=== PATIENT | male | born 1955 | race Caucasian/White ===

== ENCOUNTER 2016-11-16 23:14 | Emergency (ER) | payer BC ==
--- NOTE | 2016-11-16 23:29 | EDM.PDOC ---
ED HPI GENERAL MEDICAL PROBLEM - General Chief Complaint: ENT Problem Stated Complaint: THROAT/PAIN HEADACHES Time Seen by Provider: 11/16/16 23:28 Source of Information: Reports: Patient - History of Present Illness INITIAL COMMENTS - FREE TEXT/NARRATIVE: HISTORY AND PHYSICAL: History of present illness: []Patient presents with 2 hours of pain in the TMJ area, he is tender with opening and closing of his mouth with pressure applied, his teeth are ground down from grinding his teeth at night. He states that symptomatically he was doing well at 5 PM, he notes that he entered his pickup truck which he recently put some type of vanilla extract in the air conditioning ducts, shortly after being in the truck and running air- conditioning he notes nasal swelling on the left and not the right/nasal occlusion. At approximately 9 PM he developed the 7 out of 10 pain in bilateral TMJ distribution along with 2 enlarged tender lymph nodes which are some submandibular one on the right and one on the left. He has no drooling voice change no difficulty speaking hence no hot potato voice no trismus He did take Tylenol with some benefit He also notes that he had a dentist appointment on Thursday with no findings of cavities or decay No fever nausea vomiting chills sweats no chest pain shortness breath dizziness or palpitation no bowel or urine symptoms Review of systems: As per history of present illness and below otherwise all systems reviewed and negative. Past medical history: As per history of present illness and as reviewed below otherwise noncontributory. Surgical history: As per history of present illness and as reviewed below otherwise noncontributory. Social history: No reported history of drug or alcohol abuse. Family history: As per history of present illness and as reviewed below otherwise noncontributory. Physical exam: HEENT: Atraumatic, normocephalic, pupils reactive, negative for conjunctival pallor or scleral icterus, mucous membranes moist, throat clear, neck supple, nontender, trachea midline. Left nares occluded with boggy mucosa and swelling it appears there may even be a polyp however due to swollen/boggy mucosa is difficult to discern. the right is patent with no nasal discharge sinuses are nontender supraorbital or maxillary; tympanic membranes are clear he does have bilateral effusion, oropharynx mild erythema no exudates Lungs: Clear to auscultation, breath sounds equal bilaterally, chest nontender. Heart: S1S2, regular, negative for clicks, rubs, or JVD. Abdomen: Soft, nondistended, nontender. Negative for masses or hepatosplenomegaly. Negative for costovertebral tenderness. Pelvis: Stable nontender. Genitourinary: Deferred. Rectal: Deferred. Extremities: Atraumatic, negative for cords or calf pain. Neurovascular unremarkable. Neuro: Awake, alert, oriented. Cranial nerves II through XII unremarkable. Cerebellum unremarkable. Motor and sensory unremarkable throughout. Exam nonfocal. Diagnostics: []CBC, CRP, rapid strep Therapeutics: []Multiple [id number] symptomatic therapies I did plan to provide Toradol via [facility] and return if symptoms persist or worsen we did discuss with 2-3 hours of symptomology almost anything can develop over the next 24-48 hours and as far as changing and symptoms Impression: []Swelling/occlusion left nare Potential for environmental allergy TMJ Definitive disposition and diagnosis as appropriate pending reevaluation and review of above. jaw Pain Score (Numeric/FACES): 7 - Related Data Allergies Allergy/AdvReac Type Severity Reaction Status Date / Time Sulfa (Sulfonamide Allergy Cannot Verified 11/16/16 23:21 Antibiotics) Remember duracef Allergy Swelling Uncoded 11/16/16 23:21 Home Meds: Home Meds Aspirin [Morrison Aspirin] 81 mg PO DAILY 01/09/16 [History] Canagliflozin [Invokana] 300 mg PO DAILY 01/09/16 [History] Enalapril Maleate 15 mg PO BID 01/09/16 [History] Glimepiride [Amaryl] 2 mg PO DAILY 01/09/16 [History] atorvaSTATin Calcium [Atorvastatin Calcium] 10 mg PO DAILY 01/09/16 [History] metFORMIN HCl [Metformin HCl] 500 mg PO BID 01/09/16 [History] Past Medical History HEENT History: Reports: None Cardiovascular History: Reports: Blood Clots/VTE/DVT, High Cholesterol, Hypertension Other Cardiovascular History: hx blood clots to left leg Respiratory History: Reports: None Gastrointestinal History: Reports: Colon Polyp Genitourinary History: Reports: None Musculoskeletal History: Reports: Fracture Neurological History: Reports: None Psychiatric History: Reports: None Endocrine/Metabolic History: Reports: Diabetes, Type II, Obesity/BMI 30+ Hematologic History: Reports: None Immunologic History: Reports: None Oncologic (Cancer) History: Reports: None Dermatologic History: Reports: None - Past Surgical History Head Surgeries/Procedures: Reports: None GI Surgical History: Reports: Colonoscopy Endocrine Surgical History: Reports: None Other Musculoskeletal Surgeries/Procedures:: surgery on left leg x5 Social & Family History - Tobacco Use Smoking Status *Q: Never Smoker - Recreational Drug Use Recreational Drug Use: No Drug Use in Last 12 Months: No ED ROS GENERAL - Review of Systems Review Of Systems: ROS reveals no pertinent complaints other than HPI. ED EXAM, GENERAL - Physical Exam Exam: See Below Course - Vital Signs Last Recorded V/S: Last Vital Signs Temp 36.5 C 11/16/16 23:16 Pulse 66 11/16/16 23:16 Resp 18 11/16/16 23:16 BP 153/81 H 11/16/16 23:16 Pulse Ox 95 11/16/16 23:16 - Orders/Labs/Meds Orders: Active Orders 24 hr Category Date Time Status CULTURE STREP A CONFIRMATION [RM] Stat Lab 11/16/16 23:35 Results STREP SCRN A RAPID W CULT CONF [RM] Stat Lab 11/16/16 23:35 Results Labs: Laboratory Tests 11/16/16 11/16/16 Range/Units 23:47 23:47 WBC 6.49 (4.0-11.0) K/uL RBC 5.05 (4.50-5.90) M/uL Hgb 15.0 (13.0-17.0) g/dL Hct 45.3 (38.0-50.0) % MCV 89.7 (80.0-98.0) fL MCH 29.7 (27.0-32.0) pg MCHC 33.1 (31.0-37.0) g/dL RDW Std Deviation 46.0 (28.0-62.0) fl RDW Coeff of Shireen 14 (11.0-15.0) % Plt Count 194 (150-400) K/uL MPV 9.00 (7.40-12.00) fL Neut % (Auto) 64.2 (48.0-80.0) % Lymph % (Auto) 23.0 (16.0-40.0) % Barnes % (Auto) 9.6 (0.0-15.0) % Eos % (Auto) 2.9 (0.0-7.0) % Baso % (Auto) 0.3 (0.0-1.5) % Neut # (Auto) 4.2 (1.4-5.7) K/uL Lymph # (Auto) 1.5 (0.6-2.4) K/uL Barnes # (Auto) 0.6 (0.0-0.8) K/uL Eos # (Auto) 0.2 (0.0-0.7) K/uL Baso # (Auto) 0.0 (0.0-0.1) K/uL Nucleated RBC % 0.0 /100WBC Nucleated RBCs # 0 K/uL C-Reactive Protein 0.49 (0.0-0.5) mg/dL Departure - Departure Time of Disposition: 00:42 Disposition: Home, Self-Care 01 Condition: Good Clinical Impression: TMJ (temporomandibular joint syndrome) - Discharge Information Forms: ED Department Discharge Additional Instructions: Medication as prescribed A nasal steroid is provided as well Return if symptoms persist or worsen or new concerning symptoms develop Follow-up with primary care as scheduled on the The following information is given to patients seen in the emergency department who are being discharged to home. This information is to outline your options for follow-up care. We provide all patients seen in our emergency department with a follow-up referral. The need for follow-up, as well as the timing and circumstances, are variable depending upon the specifics of your emergency department visit. If you don't have a primary care physician on staff, we will provide you with a referral. We always advise you to contact your personal physician following an emergency department visit to inform them of the circumstance of the visit and for follow-up with them and/or the need for any referrals to a consulting specialist. The emergency department will also refer you to a specialist when appropriate. This referral assures that you have the opportunity for follow-up care with a specialist. All of these measure are taken in an effort to provide you with optimal care, which includes your follow-up. Under all circumstances we always encourage you to contact your private physician who remains a resource for coordinating your care. When calling for follow-up care, please make the office aware that this follow-up is from your recent emergency room visit. If for any reason you are refused follow-up, please contact the [facility] emergency department at and asked to speak to the emergency department charge nurse. - My Orders Last 24 Hours: My Active Orders 11/16/16 23:35 CULTURE STREP A CONFIRMATION [RM] Stat STREP SCRN A RAPID W CULT CONF [RM] Stat - Assessment/Plan Last 24 Hours: My Active Orders 11/16/16 23:35 CULTURE STREP A CONFIRMATION [RM] Stat STREP SCRN A RAPID W CULT CONF [RM] Stat
[2016-11-17 01:33] VITALS: BP 147/77
== END 2016-11-17 00:55 | disposition home or self-care (01) ==
LOC: MW.ED 23:14
DX: M26.603 Bilateral temporomandibular joint disorder, unspecified (principal); E66.9 Obesity, unspecified; E78.00 Pure hypercholesterolemia, unspecified; I10 Essential (primary) hypertension; E11.9 Type 2 diabetes mellitus without complications; Z79.82 Long term (current) use of aspirin; Z79.84 Long term (current) use of oral hypoglycemic drugs; Z79.899 Other long term (current) drug therapy; Z88.2 Allergy status to sulfonamides
CPT/HCPCS: 36415; 85025; 86140; 87081; 87880; 99283

== ENCOUNTER 2020-06-02 22:38 | Observation (INO) | payer BC ==
[2020-06-02] MEDS ORDERED: Aspirin 81 MG Tab.Chew PO ONE (23:25)
[2020-06-02] MEDS ORDERED: Acetaminophen 500 MG Tab PO ONE (23:25)
[2020-06-02 23:44] LABS: BLOOD UREA NITROGEN,BUN 23 mg/dL (7.0-18.0); CARBON DIOXIDE,CO2 21.7 mmol/L (21.0-32.0); CHLORIDE,CL 103 mmol/L (98-107); GLUCOSE RANDOM 176 mg/dL (74-106); POTASSIUM,K 4.8 mmol/L (3.5-5.1); SODIUM,NA 139 mmol/L (136-148)
--- NOTE | 2020-06-03 01:39 | CR ---
INDICATION: Chest pain. Shortness of breath. COMPARISON: None. FINDINGS/IMPRESSION: Upright portable AP chest radiographs. [id number]-du-[id number] elevation of the left diaphragm. Blunting of the left costophrenic angle laterally, suggesting a trace left pleural effusion. Mild left basilar lung stranding consistent with a small amount of atelectasis or scarring. Lungs otherwise appear clear. Upper normal heart size. No acute osseous findings. Dictated by Az Tobar MD @ 06/03/2020 1:37:36 AM Dictated by: Az Tobar MD @ 06/03/2020 01:39:06 (Electronically Signed)
[2020-06-03] MEDS ORDERED: Iopamidol 755 MG/ML 500 ML Multipack Bottle IVPUSH STA (03:50)
--- NOTE | 2020-06-03 04:07 | CT ---
INDICATION: Profound hypoxia. Negative D-dimer. COMPARISON: Chest radiograph from today. TECHNIQUE: CT examination of the chest was performed with the uneventful intravenous administration of 100 cc of Isovue 370 while 1 and 1.5 mm thick axial sections were obtained through the pulmonary arteries. Please note that all CT scans at this facility use dose modulation, iterative reconstruction, and/or weight-based dosing when appropriate to reduce radiation dose to as low as reasonably achievable. FINDINGS: : There is no sign of pulmonary embolism, with normal enhancement and branching of the pulmonary arteries. There is mild thickening of the bronchial uriostegui throughout the entire chest, consistent with mild bronchitis. There is mild linear density in the posterior and lateral left lower lobe at the lung base, associated with mild pleural thickening. This is probably scarring from previous inflammatory disease. The rest of the chest is clear. There is no sign of any interstitial fibrosis. There is no sign of any pleural effusion. There is no sign of mediastinal or hilar mass or adenopathy. The heart is normal in appearance for the patient`s age, as are the aorta and other ascending great vessels. There is no sign of supraclavicular or axillary mass or adenopathy. The visualized superior liver, spleen, pancreas, kidneys, and adrenals are normal in appearance. There is mild scoliosis of the thoracic spine convex towards the right. The osseous structures are otherwise normal in appearance for the patient`s age. IMPRESSION: No sign of pulmonary embolism. Mild thickening of bronchial uriostegui throughout the chest consistent with mild bronchitis. Mild linear density in the posterior and lateral left lower lobe, along with mild pleural thickening, consistent with previous inflammatory disease. Please note that all CT scans at this facility use dose modulation, iterative reconstruction, and/or weight-based dosing when appropriate to reduce radiation dose to as low as reasonably achievable. Dictated by Chilango Kearney MD @ Jun 03 2020 4:01AM Signed by Dr. Chilango Kearney @ Jun 03 2020 4:05AM
[2020-06-03] MEDS ORDERED: Albuterol/Ipratropium 3.0-0.5 MG/3 ML Neb Soln NEB ONE ×2 (04:13→05:27)
[2020-06-03] MEDS ORDERED: predniSONE 20 MG Tab PO ONE (05:15)
[2020-06-03] MEDS ORDERED: Ondansetron 4 MG/2 ML SDV IVPUSH PRN (07:24)
[2020-06-03] MEDS ORDERED: Enoxaparin 40 MG/0.4 ML Syringe SUBCUT SCH (07:30)
--- NOTE | 2020-06-03 07:54 | EDM.PDOC ---
ED HPI GENERAL MEDICAL PROBLEM - General Chief Complaint: Headache Stated Complaint: SEVERE HEADACHE Time Seen by Provider: 06/02/20 23:28 - History of Present Illness INITIAL COMMENTS - FREE TEXT/NARRATIVE: CHIEF COMPLAINT(S): Headache HISTORY OF PRESENT ILLNESS: This is a 64-year-old man with a past medical history of diabetes mellitus who comes to the emergency department with a chief complaint of headache. The patient states that after eating breakfast this morning he started to experiencing a pounding headache which she describes as bifrontal rated 4-5 out of 10 which has slowly worsened throughout the day. He denies any associated blurry vision, loss of vision, numbness, tingling, weakness. He denies any trouble walking, speaking, swallowing. He states that he does not have a history of headaches and denies any aggravating factors or relieving factors. He denies any nausea or vomiting. He states that he has been more fatigued throughout the day and when he woke up at around 2 PM he started to experience some shortness of breath and tightness across his anterior chest and some aching in his lower back. He denies any syncope, recent travel, recent surgery, prior history of DVT or PE. He denies any history of CAD. He states that he did have Covid in December and it felt similar to this. He denies any history of COPD or asthma. He denies any chest pain. He denies any cough. REVIEW OF SYSTEMS: Constitutional: Denies fever, chills. Eyes: Denies eye pain Ears, Nose, Mouth, & Throat: Denies earache Cardiovascular: Positive for chest tightness denies chest pain Respiratory: Positive for shortness of breath Gastrointestinal: Denies Nausea, vomiting, diarrhea, hematochezia. Genitourinary: Denies hematuria Skin:Denies a rash MSK: Positive for back pain. Neurological: Positive for headache. Denies blurred vision, loss of vision, numbness, tingling, weakness Psychiatric: Denies depression PAST MEDICAL HISTORY: As per history of present illness and as reviewed below otherwise noncontributory. SURGICAL HISTORY: As per history of present illness and as reviewed below otherwise noncontributory. SOCIAL HISTORY: As per history of present illness and as reviewed below other lopez noncontributory. FAMILY HISTORY: As per history of present illness and as reviewed below otherwise noncontributory. EXAMINATION OF ORGAN SYSTEMS/BODY AREAS: Constitutional: Blood pressure was 148/85, respiratory rate 18 with an oxygen saturation of 92% on room air. Temperature 37. Heart rate was 85 General: Obese gentleman who does not appear to be in acute distress. Psychiatric: Appropriate mood and affect. Eyes: No scleral icterus or conjunctival erythema pupils are equal round and reactive to light. Extraocular movements intact. No vertical or horizontal nystagmus. ENMT: Moist mucous membranes. No pharyngeal erythema Cardiovascular: Regular, rate, and rhythm. No gallops, murmurs, or rubs. Bilateral upper extremity pulses symmetric and intact. No peripheral edema. No JVD. Respiratory: Patient is speaking in full sentences. There is bilateral rhonchorous breath sounds. No obvious wheezing. No crackles noted. Gastrointestinal: Soft, non-tender, non-distended. Normoactive bowel sounds Genitourinary: No suprapubic tenderness Musculoskeletal: Normal range of motion. Skin: No lesions or abrasions. Neurological: AOx4. CN grossly intact. Stregth 5/5 in bilateral upper and lower extremity. Sensation is intact bilaterally in upper and lower extremity. Gait appears normal. Finger to nose, heel to hua, rapid alternating movements intact. MEDICAL DECISION MAKING AND COURSE IN THE ED WITH INTERPRETATION/REVIEW OF DIAGNOSTIC STUDIES: This is a 64-year-old man with a past medical history of diabetes mellitus who presents to the emergency department with a bifrontal headache who is neurovascularly intact who is hypoxic but is speaking full sentences with rhonchorous breath sounds bilaterally. At this time we did place the patient on supplemental oxygenation. EKG was obtained which did not reveal any acute signs of ischemia. Will obtain a cardiac work-up including a D-dimer as the patient does have a history of pulmonary embolism after a extremity khalil rgery. Will obtain a BNP given the possibility of CHF. We will reevaluate the patient. I will provide the patient with Tylenol for his headache. Laboratory: CBC is unremarkable. Coags are within normal limits. D-dimer is normal. CMP reveals mildly elevated BUN at 23, hyperglycemia at 176, hyperbilirubinemia at 1.3 with normal AST and ALT. Troponin is negative. BNP is mildly elevated at 122 otherwise unremarkable. Covid is negative. The radiological images were viewed by myself along with reading the report from the radiologist. Chest x-ray reveals mild to moderate elevation of the left hemidiaphragm with blunting of the left costophrenic angle laterally suggesting a trace left pleural effusion. There is mild left basilar lung stranding consistent with a small amount of elective cysts or scarring. Otherwise no acute cardiopulmonary process. Time: 2304 Twelve-lead EKG interpreted by myself. Normal sinus rhythm at a rate of 87 beats per minute. Normal axis. CA interval is 196 ms. QRS duration is less than [address] segments are normal without elevations or depressions. No T wave inversions there is a Q wave in lead V2. Possible right ventricular hypertrophy. There are occasional PVCs. No prior EKGs in our system. Interpretation: Normal sinus rhythm with occasional PVCs and right ventricular hypertrophy After initial work-up the patient continued to remain hypoxic however his headache did improve. At this time I am not convinced that the patient has CHF as suggested by a mildly elevated BNP and a trace right pleural effusion. Given the patient's history of pulmonary embolism and the continued hypoxia we will obtain a CT angio to evaluate. The patient does not have any white count, is afebrile therefore it is unlikely due to pneumonia. The Covid is negative. The radiological images were viewed by myself along with reading the report from the radiologist. CT angiogram of the chest does not reveal any acute pulmonary embolism. There is mild thickening of the bronchial uriostegui consistent with bronchitis. There is a mild linear density in the posterior and lateral left lower lobe with mild pleural thickening which is consistent with prior inflammatory disease. After imaging although there was no wheezing on examination I did provide the patient with a DuoNeb treatment and prednisone. I did discuss the results with the patient at this time I do believe he is experiencing hypoxia secondary to bronchitis. 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 We will reevaluate after DuoNeb treatment. We did reevaluate after the DuoNeb treatment and the patient continued to remain hypoxic at the same level as prior to the treatment. Therefore we did increase the patient's oxygen level with resultant oxygen saturation of 94%. I did discuss with him at this time that given his low oxygen I would like to repeat the DuoNeb treatment but that I would like to admit him to the hospital for further evaluation and treatment. He was amenable to this plan. I contacted Dr. Palacio who accepted the patient for observation admission. DISPOSITION: The patient was admitted to the hospital in stable condition CONDITION: Fair PROCEDURES: None FINAL IMPRESSION(S)/DIAGNOSES: 1. Acute hypoxic respiratory failure likely secondary to bronchitis Cliff Fontenot M.D. chest Pain Score (Numeric/FACES): 4 - Related Data Allergies Allergy/AdvReac Type Severity Reaction Status Date / Time Sulfa (Sulfonamide Allergy Cannot Verified 06/02/20 22:57 Antibiotics) Remember duracef Allergy Swelling Uncoded 11/16/16 23:21 Home Meds: Home Meds Aspirin [Strayhorn Aspirin EC] 81 mg PO DAILY 01/09/16 [History] Canagliflozin [Invokana] 300 mg PO DAILY 01/09/16 [History] Enalapril Maleate 15 mg PO BID 01/09/16 [History] Glimepiride [Amaryl] 2 mg PO DAILY 01/09/16 [History] atorvaSTATin Calcium [Atorvastatin Calcium] 10 mg PO DAILY 01/09/16 [History] metFORMIN HCl [Metformin HCl] 500 mg PO BID 01/09/16 [History] Past Medical History - Past Health History Medical/Surgical History: Denies Medical/Surgical History HEENT History: Reports: None Other HEENT History: wears glasses Cardiovascular History: Reports: Blood Clots/VTE/DVT, High Cholesterol, Hypertension Other Cardiovascular History: hx blood clots to left leg Respiratory History: Reports: None Gastrointestinal History: Reports: Colon Polyp Genitourinary History: Reports: None Musculoskeletal History: Reports: Fracture Neurological History: Reports: None Psychiatric History: Reports: None Endocrine/Metabolic History: Reports: Diabetes, Type II, Obesity/BMI 30+ Hematologic History: Reports: None Immunologic History: Reports: None Oncologic (Cancer) History: Reports: None Dermatologic History: Reports: None - Infectious Disease History Infectious Disease History: Reports: Chicken Pox, Measles - Past Surgical History Head Surgeries/Procedures: Reports: None GI Surgical History: Reports: Colonoscopy Endocrine Surgical History: Reports: None Other Musculoskeletal Surgeries/Procedures:: surgery on left leg x5 Social & Family History - Family History Family Medical History: No Pertinent Family History - Caffeine Use Caffeine Use: Reports: Soda - Recreational Drug Use Recreational Drug Use: No ED ROS GENERAL - Review of Systems Review Of Systems: See Below ED EXAM, GENERAL - Physical Exam Exam: See Below Course - Vital Signs Last Recorded V/S: Last Vital Signs Temp 37.0 C 06/02/20 22:58 Pulse 89 06/03/20 07:21 Resp 18 06/03/20 07:21 BP 111/60 06/03/20 07:21 Pulse Ox 94 L 06/03/20 07:21 - Orders/Labs/Meds Orders: Active Orders 24 hr Category Date Time Status EKG Documentation Completion [RC] STAT Care 06/02/20 23:25 Active RT Aerosol Therapy [RC] ASDIRECTED Care 06/03/20 04:13 Active Medication Orders Acetaminophen (Tylenol) 650 mg PO Q4H PRN PRN Reason: Pain (Mild 1-3)/fever Albuterol/Ipratropium (Duoneb 3.0-0.5 Mg/3 Ml) 3 ml NEB Q4HRRT [facility] Aspirin (Halfprin) 81 mg PO DAILY [facility] Atorvastatin Calcium (Lipitor) 10 mg PO DAILY [facility] Enalapril Maleate (Vasotec) 15 mg PO BID [facility] Enoxaparin Sodium (Lovenox) 40 mg SUBCUT Q24H [facility] Azithromycin 500 mg/ Sodium (Chloride) 250 mls @ 250 mls/hr IV DAILY [facility] Ondansetron HCl (Zofran) 4 mg IVPUSH Q4H PRN PRN Reason: Nausea/Vomiting Labs: Laboratory Tests 06/02/20 06/02/20 06/02/20 Range/Units 23:20 23:20 23:20 WBC 9.79 (4.0-11.0) K/uL RBC 5.41 (4.50-5.90) M/uL Hgb 16.4 (13.0-17.0) g/dL Hct 49.3 (38.0-50.0) % MCV 91.1 (80.0-98.0) fL MCH 30.3 (27.0-32.0) pg MCHC 33.3 (31.0-37.0) g/dL RDW Std Deviation 46.8 (28.0-62.0) fl RDW Coeff of Shireen 14 (11.0-15.0) % Plt Count 160 (150-400) K/uL MPV 9.90 (7.40-12.00) fL Neut % (Auto) 84.8 H (48.0-80.0) % Lymph % (Auto) 4.6 L (16.0-40.0) % [place] % (Auto) 10.2 (0.0-15.0) % Eos % (Auto) 0.2 (0.0-7.0) % Baso % (Auto) 0.2 (0.0-1.5) % Neut # (Auto) 8.3 H (1.4-5.7) K/uL Lymph # (Auto) 0.5 L (0.6-2.4) K/uL [place] # (Auto) 1.0 H (0.0-0.8) K/uL Eos # (Auto) 0.0 (0.0-0.7) K/uL Baso # (Auto) 0.0 (0.0-0.1) K/uL Nucleated RBC % 0.0 /100WBC Nucleated RBCs # 0 K/uL INR 1.13 D-Dimer, Quantitative 0.27 (0.0-0.50) mg/L FEU Sodium 139 (136-148) mmol/L Potassium 4.8 (3.5-5.1) mmol/L Chloride 103 (98-107) mmol/L Carbon Dioxide 21.7 (21.0-32.0) mmol/L BUN 23 H (7.0-18.0) mg/dL Creatinine 1.3 (0.8-1.3) mg/dL Est Cr Clr Drug Dosing 65.73 mL/min Estimated GFR (MDRD) 55.8 ml/min Glucose 176 H (74-106) mg/dL Calcium 9.0 (8.5-10.1) mg/dL Total Bilirubin 1.3 H (0.2-1.0) mg/dL AST 20 (15-37) IU/L ALT 27 (14-63) IU/L Alkaline Phosphatase 56 (46-116) U/L Troponin I < 0.050 (0.000-0.056) ng/mL B-Natriuretic Peptide (<100) PG/ML Total Protein 7.6 (6.4-8.2) g/dL Albumin 4.0 (3.4-5.0) g/dL Globulin 3.6 (2.6-4.0) g/dL Albumin/Globulin Ratio 1.1 (0.9-1.6) SARS-CoV-2 RNA (DIRK) (NEGATIVE) 06/02/20 06/02/20 Range/Units 23:20 23:25 WBC (4.0-11.0) K/uL RBC (4.50-5.90) M/uL Hgb (13.0-17.0) g/dL Hct (38.0-50.0) % MCV (80.0-98.0) fL MCH (27.0-32.0) pg MCHC (31.0-37.0) g/dL RDW Std Deviation (28.0-62.0) fl RDW Coeff of Shireen (11.0-15.0) % Plt Count (150-400) K/uL MPV (7.40-12.00) fL Neut % (Auto) (48.0-80.0) % Lymph % (Auto) (16.0-40.0) % [place] % (Auto) (0.0-15.0) % Eos % (Auto) (0.0-7.0) % Baso % (Auto) (0.0-1.5) % Neut # (Auto) (1.4-5.7) K/uL Lymph # (Auto) (0.6-2.4) K/uL [place] # (Auto) (0.0-0.8) K/uL Eos # (Auto) (0.0-0.7) K/uL Baso # (Auto) (0.0-0.1) K/uL Nucleated RBC % /100WBC Nucleated RBCs # K/uL INR D-Dimer, Quantitative (0.0-0.50) mg/L FEU Sodium (136-148) mmol/L Potassium (3.5-5.1) mmol/L Chloride (98-107) mmol/L Carbon Dioxide (21.0-32.0) mmol/L BUN (7.0-18.0) mg/dL Creatinine (0.8-1.3) mg/dL Est Cr Clr Drug Dosing mL/min Estimated GFR (MDRD) ml/min Glucose (74-106) mg/dL Calcium (8.5-10.1) mg/dL Total Bilirubin (0.2-1.0) mg/dL AST (15-37) IU/L ALT (14-63) IU/L Alkaline Phosphatase (46-116) U/L Troponin I (0.000-0.056) ng/mL B-Natriuretic Peptide 122 H (<100) PG/ML Total Protein (6.4-8.2) g/dL Albumin (3.4-5.0) g/dL Globulin (2.6-4.0) g/dL Albumin/Globulin Ratio (0.9-1.6) SARS-CoV-2 RNA (DIRK) NEGATIVE (NEGATIVE) Meds: Medications Generic Name Dose Route Start Last Admin Trade Name Mike PRN Reason Stop Dose Admin Acetaminophen 650 mg 06/03/20 07:24 Tylenol PO Q4H PRN Pain (Mild 1-3)/fever Albuterol/Ipratropium 3 ml 06/03/20 10:00 Duoneb 3.0-0.5 Mg/3 Ml NEB Q4HRRT [facility] Aspirin 81 mg 06/04/20 09:00 Halfprin PO DAILY [facility] Atorvastatin Calcium 10 mg 06/03/20 09:00 Lipitor PO DAILY [facility] Enalapril Maleate 15 mg 06/03/20 09:00 Vasotec PO BID [facility] Enoxaparin Sodium 40 mg 06/03/20 07:30 Lovenox SUBCUT Q24H [facility] Azithromycin 500 mg/ Sodium 250 mls @ 250 mls/hr 06/03/20 09:00 Chloride IV DAILY [facility] Ondansetron HCl 4 mg 06/03/20 07:24 Zofran IVPUSH Q4H PRN Nausea/Vomiting Discontinued Medications Generic Name Dose Route Start Last Admin Trade Name Mike PRN Reason Stop Dose Admin Acetaminophen 1,000 mg 06/02/20 23:25 06/02/20 23:31 Tylenol Extra Strength PO 06/02/20 23:26 1,000 mg ONETIME ONE Administration Albuterol/Ipratropium 3 ml 06/03/20 04:13 06/03/20 04:50 Duoneb 3.0-0.5 Mg/3 Ml NEB 06/03/20 04:14 3 ml ONETIME ONE Administration Albuterol/Ipratropium 3 ml 06/03/20 05:27 06/03/20 05:31 Duoneb 3.0-0.5 Mg/3 Ml NEB 06/03/20 05:28 3 ml ONETIME ONE Administration Aspirin 324 mg 06/02/20 23:25 06/02/20 23:31 Aspirin PO 06/02/20 23:26 324 mg ONETIME ONE Administration Iopamidol 100 ml 06/03/20 03:50 06/03/20 03:51 Isovue Multipack-370 (76%) IVPUSH 06/03/20 03:51 100 ml ONETIME STA Administration Prednisone 60 mg 06/03/20 05:15 06/03/20 05:30 Prednisone PO 06/03/20 05:16 60 mg ONETIME ONE Administration Departure - Departure Time of Disposition: 05:26 Disposition: Refer to Observation Condition: Fair Clinical Impression: Bronchitis, Hypoxia - Discharge Information *PRESCRIPTION DRUG MONITORING PROGRAM REVIEWED*: No *COPY OF PRESCRIPTION DRUG MONITORING REPORT IN PATIENT DAPHNE: No Sepsis Event Note (ED) - Evaluation Sepsis Screening Result: No Definite Risk - Focused Exam Vital Signs: Vital Signs Temp Pulse Resp BP Pulse Ox 06/03/20 03:36 75 18 115/54 L 92 L 06/03/20 01:56 80 18 116/70 92 L 06/02/20 22:58 37.0 C 85 18 148/85 H 92 L - My Orders Last 24 Hours: My Active Orders 06/02/20 23:25 EKG Documentation Completion [RC] STAT 06/03/20 04:13 RT Aerosol Therapy [RC] ASDIRECTED - Assessment/Plan Last 24 Hours: My Active Orders 06/02/20 23:25 EKG Documentation Completion [RC] STAT 06/03/20 04:13 RT Aerosol Therapy [RC] ASDIRECTED
[2020-06-03 08:09] LABS: BLOOD UREA NITROGEN,BUN 25 mg/dL (7.0-18.0); CARBON DIOXIDE,CO2 22.6 mmol/L (21.0-32.0); CHLORIDE,CL 103 mmol/L (98-107); GLUCOSE RANDOM 177 mg/dL (74-106); POTASSIUM,K 4.2 mmol/L (3.5-5.1); SODIUM,NA 138 mmol/L (136-148)
--- NOTE | 2020-06-03 08:58 | PCM.HP.2 ---
H&P History of Present Illness - General Date of Service: 06/03/20 Admit Problem/Dx: Admission Diagnosis/Problem Admission Diagnosis/Problem Hypoxia Source of Information: Patient History Limitations: Reports: No Limitations - History of Present Illness Initial Comments - Free Text/Narative: Patient is a 64-year-old man with a past medical history of diabetes mellitus, PE (provoked DVT) who comes to the emergency department with a chief complaint of headache. The patient states that after eating breakfast this morning he started to experiencing a pounding headache which she describes as bifrontal rated 4-5 out of 10 which has slowly worsened throughout the day, he denied had such headache before, states he started to feel more fatigued throughout the day and around 2 PM he started to experience some shortness of breath and tightness across his anterior chest and some aching in his lower back. . He denies any associated blurry vision, loss of vision, numbness, tingling, weakness. He denies any trouble walking, speaking, swallowing. He denies any nausea or vomiting. He denies any syncope, recent travel, recent surgery, He denies any history of CAD. He states that he did have COVID in December . He denies any history of COPD or asthma. 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 Patient states in he shattered his left leg and underwent extensive and complicated surgical repair which took 14 months to heal, states he ended up have several blood clots in his lungs, he was started on blood thinner and eventually taken off it. Patient was found to be hypoxic in ER and required 2L of oxygen to maintain sats, CTA chest was negative for PE but did show some mild thickening of bronchial uriostegui, consistent with mild bronchitis,, mild linear density in posterior and lateral lobe, along with mild pleural thickening consistent with previous inflammatory disease. Patient was admitted for further management of acute hypoxic respiratory failure. chest Pain Score (Numeric/FACES): 4 - Related Data Allergies/Adverse Reactions: Allergies Allergy/AdvReac Type Severity Reaction Status Date / Time Sulfa (Sulfonamide Allergy Cannot Verified 06/03/20 11:12 Antibiotics) Remember duracef Allergy Swelling Uncoded 06/03/20 11:12 Home Medications: Home Meds Aspirin [Humphreys Aspirin EC] 81 mg PO DAILY 01/09/16 [History] Canagliflozin [Invokana] 300 mg PO DAILY 01/09/16 [History] Enalapril Maleate 15 mg PO BID 01/09/16 [History] Glimepiride [Amaryl] 2 mg PO DAILY 01/09/16 [History] atorvaSTATin Calcium [Atorvastatin Calcium] 10 mg PO DAILY 01/09/16 [History] metFORMIN HCl [Metformin HCl] 500 mg PO BID 01/09/16 [History] Past Medical History - Past Health History Medical/Surgical History: Denies Medical/Surgical History HEENT History: Reports: None Other HEENT History: wears glasses Cardiovascular History: Reports: Blood Clots/VTE/DVT, High Cholesterol, Hypertension Other Cardiovascular History: hx blood clots to left leg Respiratory History: Reports: None Gastrointestinal History: Reports: Colon Polyp Genitourinary History: Reports: None Musculoskeletal History: Reports: Fracture Neurological History: Reports: None Psychiatric History: Reports: None Endocrine/Metabolic History: Reports: Diabetes, Type II, Obesity/BMI 30+ Hematologic History: Reports: None Immunologic History: Reports: None Oncologic (Cancer) History: Reports: None Dermatologic History: Reports: None - Infectious Disease History Infectious Disease History: Reports: Chicken Pox, Measles - Past Surgical History Head Surgeries/Procedures: Reports: None GI Surgical History: Reports: Colonoscopy Endocrine Surgical History: Reports: None Other Musculoskeletal Surgeries/Procedures:: surgery on left leg x5 Social & Family History - Family History Family Medical History: No Pertinent Family History - Tobacco Use Tobacco Use Status *Q: Never Tobacco User - Caffeine Use Caffeine Use: Reports: Soda - Recreational Drug Use Recreational Drug Use: No H&P Review of Systems - Review of Systems: Review Of Systems: See Below General: Denies: Fever, Chills, Malaise Pulmonary: Reports: Shortness of Breath, Cough. Denies: Wheezing, Pleuritic Chest Pain, Sputum Gastrointestinal: Denies: Abdominal Pain, Anorexia, Black Stool Genitourinary: Denies: Dysuria, Frequency, Burning Skin: Denies: Cyanosis, Jaundice Psychiatric: Denies: Confusion, Depression, Mood Lability Neurological: Denies: Confusion, Headache (resolved) Exam - Exam Exam: See Below - Vital Signs Vital Signs: Last Vital Signs Temp 37.0 C 06/02/20 22:58 Pulse 89 06/03/20 07:21 Resp 18 06/03/20 07:21 BP 111/60 06/03/20 07:21 Pulse Ox 94 L 06/03/20 07:21 Weight: 116.261 kg - Exam Quality Assessment: Supplemental Oxygen General: Alert Neck: Supple, Trachea Midline Lungs: Normal Respiratory Effort, Rales, Rhonchi Cardiovascular: Regular Rate, Regular Rhythm GI/Abdominal Exam: Normal Bowel Sounds, Soft - Patient Data Lab Results Last 24 hrs: Laboratory Results - last 24 hr 06/02/20 06/02/20 06/02/20 Range/Units 23:20 23:20 23:20 WBC 9.79 (4.0-11.0) K/uL RBC 5.41 (4.50-5.90) M/uL Hgb 16.4 (13.0-17.0) g/dL Hct 49.3 (38.0-50.0) % MCV 91.1 (80.0-98.0) fL MCH 30.3 (27.0-32.0) pg MCHC 33.3 (31.0-37.0) g/dL RDW Std Deviation 46.8 (28.0-62.0) fl RDW Coeff of Shireen 14 (11.0-15.0) % Plt Count 160 (150-400) K/uL MPV 9.90 (7.40-12.00) fL Neut % (Auto) 84.8 H (48.0-80.0) % Lymph % (Auto) 4.6 L (16.0-40.0) % Grady % (Auto) 10.2 (0.0-15.0) % Eos % (Auto) 0.2 (0.0-7.0) % Baso % (Auto) 0.2 (0.0-1.5) % Neut # (Auto) 8.3 H (1.4-5.7) K/uL Lymph # (Auto) 0.5 L (0.6-2.4) K/uL Grady # (Auto) 1.0 H (0.0-0.8) K/uL Eos # (Auto) 0.0 (0.0-0.7) K/uL Baso # (Auto) 0.0 (0.0-0.1) K/uL Nucleated RBC % 0.0 /100WBC Nucleated RBCs # 0 K/uL INR 1.13 D-Dimer, Quantitative 0.27 (0.0-0.50) mg/L FEU Sodium 139 (136-148) mmol/L Potassium 4.8 (3.5-5.1) mmol/L Chloride 103 (98-107) mmol/L Carbon Dioxide 21.7 (21.0-32.0) mmol/L BUN 23 H (7.0-18.0) mg/dL Creatinine 1.3 (0.8-1.3) mg/dL Est Cr Clr Drug Dosing 65.73 mL/min Estimated GFR (MDRD) 55.8 ml/min Glucose 176 H (74-106) mg/dL Calcium 9.0 (8.5-10.1) mg/dL Total Bilirubin 1.3 H (0.2-1.0) mg/dL AST 20 (15-37) IU/L ALT 27 (14-63) IU/L Alkaline Phosphatase 56 (46-116) U/L Troponin I < 0.050 (0.000-0.056) ng/mL B-Natriuretic Peptide (<100) PG/ML Total Protein 7.6 (6.4-8.2) g/dL Albumin 4.0 (3.4-5.0) g/dL Globulin 3.6 (2.6-4.0) g/dL Albumin/Globulin Ratio 1.1 (0.9-1.6) SARS-CoV-2 RNA (DIRK) (NEGATIVE) 06/02/20 06/02/20 06/03/20 Range/Units 23:20 23:25 07:43 WBC 6.16 (4.0-11.0) K/uL RBC 5.37 (4.50-5.90) M/uL Hgb 16.1 (13.0-17.0) g/dL Hct 49.0 (38.0-50.0) % MCV 91.2 (80.0-98.0) fL MCH 30.0 (27.0-32.0) pg MCHC 32.9 (31.0-37.0) g/dL RDW Std Deviation 47.8 (28.0-62.0) fl RDW Coeff of Shireen 14 (11.0-15.0) % Plt Count 152 (150-400) K/uL MPV 10.00 (7.40-12.00) fL Neut % (Auto) 82.5 H (48.0-80.0) % Lymph % (Auto) 6.3 L (16.0-40.0) % Grady % (Auto) 10.7 (0.0-15.0) % Eos % (Auto) 0.3 (0.0-7.0) % Baso % (Auto) 0.2 (0.0-1.5) % Neut # (Auto) 5.1 (1.4-5.7) K/uL Lymph # (Auto) 0.4 L (0.6-2.4) K/uL Grady # (Auto) 0.7 (0.0-0.8) K/uL Eos # (Auto) 0.0 (0.0-0.7) K/uL Baso # (Auto) 0.0 (0.0-0.1) K/uL Nucleated RBC % 0.0 /100WBC Nucleated RBCs # 0 K/uL INR D-Dimer, Quantitative (0.0-0.50) mg/L FEU Sodium (136-148) mmol/L Potassium (3.5-5.1) mmol/L Chloride (98-107) mmol/L Carbon Dioxide (21.0-32.0) mmol/L BUN (7.0-18.0) mg/dL Creatinine (0.8-1.3) mg/dL Est Cr Clr Drug Dosing mL/min Estimated GFR (MDRD) ml/min Glucose (74-106) mg/dL Calcium (8.5-10.1) mg/dL Total Bilirubin (0.2-1.0) mg/dL AST (15-37) IU/L ALT (14-63) IU/L Alkaline Phosphatase (46-116) U/L Troponin I (0.000-0.056) ng/mL B-Natriuretic Peptide 122 H (<100) PG/ML Total Protein (6.4-8.2) g/dL Albumin (3.4-5.0) g/dL Globulin (2.6-4.0) g/dL Albumin/Globulin Ratio (0.9-1.6) SARS-CoV-2 RNA (DIRK) NEGATIVE (NEGATIVE) 03/07/21 Range/Units 07:43 WBC (4.0-11.0) K/uL RBC (4.50-5.90) M/uL Hgb (13.0-17.0) g/dL Hct (38.0-50.0) % MCV (80.0-98.0) fL MCH (27.0-32.0) pg MCHC (31.0-37.0) g/dL RDW Std Deviation (28.0-62.0) fl RDW Coeff of Shireen (11.0-15.0) % Plt Count (150-400) K/uL MPV (7.40-12.00) fL Neut % (Auto) (48.0-80.0) % Lymph % (Auto) (16.0-40.0) % Grady % (Auto) (0.0-15.0) % Eos % (Auto) (0.0-7.0) % Baso % (Auto) (0.0-1.5) % Neut # (Auto) (1.4-5.7) K/uL Lymph # (Auto) (0.6-2.4) K/uL Grady # (Auto) (0.0-0.8) K/uL Eos # (Auto) (0.0-0.7) K/uL Baso # (Auto) (0.0-0.1) K/uL Nucleated RBC % /100WBC Nucleated RBCs # K/uL INR D-Dimer, Quantitative (0.0-0.50) mg/L FEU Sodium 138 (136-148) mmol/L Potassium 4.2 (3.5-5.1) mmol/L Chloride 103 (98-107) mmol/L Carbon Dioxide 22.6 (21.0-32.0) mmol/L BUN 25 H (7.0-18.0) mg/dL Creatinine 1.3 (0.8-1.3) mg/dL Est Cr Clr Drug Dosing 65.73 mL/min Estimated GFR (MDRD) 55.8 ml/min Glucose 177 H (74-106) mg/dL Calcium 9.0 (8.5-10.1) mg/dL Total Bilirubin (0.2-1.0) mg/dL AST (15-37) IU/L ALT (14-63) IU/L Alkaline Phosphatase (46-116) U/L Troponin I < 0.050 (0.000-0.056) ng/mL B-Natriuretic Peptide (<100) PG/ML Total Protein (6.4-8.2) g/dL Albumin (3.4-5.0) g/dL Globulin (2.6-4.0) g/dL Albumin/Globulin Ratio (0.9-1.6) SARS-CoV-2 RNA (DIRK) (NEGATIVE) Result Diagrams: 06/03/20 07:43 06/03/20 07:43 Sepsis Event Note - Evaluation Sepsis Screening Result: No Definite Risk - Focused Exam Vital Signs: Vital Signs Temp Pulse Resp BP Pulse Ox 06/03/20 07:21 89 18 111/60 94 L 06/03/20 06:09 92 L 06/03/20 06:05 78 16 134/76 88 L 06/03/20 03:36 75 18 115/54 L 92 L 06/03/20 01:56 80 18 116/70 92 L 06/02/20 22:58 37.0 C 85 18 148/85 H 92 L - Problem List (1) Acute hypoxemic respiratory failure SNOMED Code(s): 831518695 ICD Code: J96.01 - ACUTE RESPIRATORY FAILURE WITH HYPOXIA Status: Acute Current Visit: Yes (2) Bronchitis SNOMED Code(s): 29288653 ICD Code: J40 - BRONCHITIS, NOT SPECIFIED ACUTE OR CHRONIC Status: Acute Current Visit: Yes (3) Diabetes SNOMED Code(s): 96761387 ICD Code: E11.9 - TYPE 2 DIABETES MELLITUS WITHOUT COMPLICATIONS Status: Acute Current Visit: Yes Problem List Initiated/Reviewed/Updated: Yes Orders Last 24hrs: Active Orders 24 hr Category Date Time Status Admission Status [Patient Status] [ADT] Stat ADT 06/03/20 05:26 Active Ambulate [RC] ASDIRECTED Care 06/03/20 07:24 Active Antiembolic Devices [RC] PER UNIT ROUTINE Care 06/03/20 07:26 Active EKG Documentation Completion [RC] STAT Care 06/02/20 23:25 Active IS (RT) [RT Incentive Spirometry] [RC] Q1HWA Care 06/03/20 07:50 Active Oxygen Therapy [RC] PRN Care 06/03/20 07:24 Active Pulse Oximetry [RC] PRN Care 06/03/20 07:25 Active RT Aerosol Therapy [RC] ASDIRECTED Care 06/03/20 04:13 Active RT Aerosol Therapy [RC] ASDIRECTED Care 06/03/20 05:27 Active RT Aerosol Therapy [RC] ASDIRECTED Care 06/03/20 07:26 Active Telemetry Monitoring [Cardiac Monitoring] [RC] Q8H Care 06/03/20 07:06 Active VTE/DVT Education [RC] PER UNIT ROUTINE Care 06/03/20 07:24 Active Vital Signs [RC] Q4H Care 06/03/20 07:24 Active [employer] Diet [DIET] Diet 06/03/20 Lunch Active BMP [BASIC METABOLIC PANEL,BMP] [CHEM] AM Lab 06/04/20 05:11 Ordered CBC WITH AUTO DIFF [HEME] AM Lab 06/04/20 05:11 Ordered MAGNESIUM [CHEM] AM Lab 06/04/20 05:11 Ordered PHOSPHORUS [CHEM] AM Lab 06/04/20 05:11 Ordered UA RFX ADELINA AND CULT IF INDIC [URIN] Routine Lab 06/03/20 07:51 Ordered Acetaminophen [TylenoL] Med 06/03/20 07:24 Active 650 mg PO Q4H PRN Albuterol/Ipratropium [DuoNeb 3.0-0.5 MG/3 ML] Med 06/03/20 10:00 Active 3 ml NEB Q4HRRT Aspirin [Halfprin] Med 06/04/20 09:00 Active 81 mg PO DAILY Azithromycin [Zithromax] 500 mg Med 06/03/20 09:00 Active Sodium Chloride 0.9% [Normal Saline (AdvBag)] 250 ml IV DAILY Enalapril [Vasotec] Med 06/03/20 09:00 Active 15 mg PO BID Enoxaparin [Lovenox] Med 06/03/20 07:30 Active 40 mg SUBCUT Q24H Ondansetron [Zofran] Med 06/03/20 07:24 Active 4 mg IVPUSH Q4H PRN atorvaSTATin [Lipitor] Med 06/03/20 09:00 Active 10 mg PO DAILY Sequential Compression Device [OM.PC] Per Unit Routine Oth 06/03/20 07:25 Ordered Medication Orders Acetaminophen (Tylenol) 650 mg PO Q4H PRN PRN Reason: Pain (Mild 1-3)/fever Albuterol/Ipratropium (Duoneb 3.0-0.5 Mg/3 Ml) 3 ml NEB Q4HRRT [facility] Aspirin (Halfprin) 81 mg PO DAILY [facility] Atorvastatin Calcium (Lipitor) 10 mg PO DAILY [facility] Enalapril Maleate (Vasotec) 15 mg PO BID [facility] Enoxaparin Sodium (Lovenox) 40 mg SUBCUT Q24H [facility]ANS Azithromycin 500 mg/ Sodium (Chloride) 250 mls @ 250 mls/hr IV DAILY [facility] Ondansetron HCl (Zofran) 4 mg IVPUSH Q4H PRN PRN Reason: Nausea/Vomiting Assessment/Plan Comment:: 64 y/o M admitted for acute hypox respiratory failure CTA chest noted, CXR noted No evident cause of hypoxia, possible bronchitis vs Pneumonia vs chronic inflammatory lung process start IV Azithromycin oxygen via NC, wean as tolerated IS Q1H DuoNEbs SSI Check HbA1c, TSH, lipid panel Resume home meds as appropriate
[2020-06-03] MEDS ORDERED: atorvaSTATin 10 MG Tab PO SCH (09:00)
[2020-06-03] MEDS: Albuterol/Ipratropium 3.0-0.5 MG/3 ML Neb Soln NEB SCH ×5 (09:47→21:03)
[2020-06-03] MEDS: Enalapril 5 MG Tab PO SCH ×2 (10:03→21:03)
[2020-06-03] MEDS: Azithromycin 500 MG in Sodium Chloride 0.9% 250 ML IV SCH (10:05)
[2020-06-03] MEDS ORDERED: Furosemide 20 MG/2 ML VIAL IVPUSH ONE (11:02)
[2020-06-03] MEDS ORDERED: Glucagon,Human Recombinant 1 MG Vial IM PRN (11:04)
[2020-06-03] MEDS ORDERED: 50% Dextrose in Water 50 ML Syringe IV PRN (11:04)
[2020-06-03] MEDS: Enoxaparin 40 MG/0.4 ML Syringe SUBCUT SCH (11:05)
[2020-06-03 11:23] LABS: HEMOGLOBIN A1C 7.3 %
[2020-06-03] MEDS: Insulin Aspart 100 Units/ML 3 ML Pen SUBCUT SCH ×2 (11:33→17:17)
[2020-06-03] MEDS: Acetaminophen 325 MG Tab PO PRN (16:05)
[2020-06-04] MEDS: Albuterol/Ipratropium 3.0-0.5 MG/3 ML Neb Soln NEB SCH ×3 (01:47→10:14)
[2020-06-04 06:38] LABS: BLOOD UREA NITROGEN,BUN 30 mg/dL (7.0-18.0); CARBON DIOXIDE,CO2 26.1 mmol/L (21.0-32.0); CHLORIDE,CL 103 mmol/L (98-107); GLUCOSE RANDOM 166 mg/dL (74-106); POTASSIUM,K 3.6 mmol/L (3.5-5.1); SODIUM,NA 140 mmol/L (136-148)
[2020-06-04] MEDS ORDERED: cefTRIAXone 1 GM in Premix Bag 1 BAG IV SCH (08:00)
[2020-06-04] MEDS ORDERED: Sodium Chloride 0.9% 2.5 ML Syringe FLUSH PRN (08:01)
[2020-06-04] MEDS: Insulin Aspart 100 Units/ML 3 ML Pen SUBCUT SCH ×2 (08:10→12:40)
[2020-06-04] MEDS ORDERED: Enalapril 5 MG Tab PO SCH (09:00)
[2020-06-04] MEDS ORDERED: Aspirin 81 MG Tab.EC PO SCH (09:00)
[2020-06-04] MEDS: Acetaminophen 325 MG Tab PO PRN (09:38)
[2020-06-04] MEDS ORDERED: Albuterol 8 GM Inhaler INH PRN (10:00)
[2020-06-04] MEDS ORDERED: Fluticasone/Salmeterol 250-50 MCG Inhalation Powder 14/Diskus INH SCH (10:15)
[2020-06-04] MEDS: Azithromycin 500 MG in Sodium Chloride 0.9% 250 ML IV SCH (10:53)
[2020-06-04] MEDS: Enoxaparin 40 MG/0.4 ML Syringe SUBCUT SCH (11:25)
[2020-06-04 11:36] VITALS: BP 113/66; PULSE 80
--- NOTE | 2020-06-04 15:29 | PCM.DCSUM1 ---
Discharge Summary - Hospital Course Brief History: Patient is a 64-year-old man with a past medical history of diabetes mellitus, PE (provoked DVT) who comes to the emergency department with a chief complaint of headache. The patient states that after eating breakfast this morning he started to experiencing a pounding headache which she describes as bifrontal rated 4-5 out of 10 which has slowly worsened throughout the day, he denied had such headache before, states he started to feel more fatigued throughout the day and around 2 PM he started to experience some shortness of breath and tightness across his anterior chest and some aching in his lower back. . He denies any associated blurry vision, loss of vision, numbness, tingling, weakness. He denies any trouble walking, speaking, swallowing. He denies any nausea or vomiting. He denies any syncope, recent travel, recent surgery, He denies any history of CAD. He states that he did have COVID in December . He denies any history of COPD or asthma. 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 Patient states in he shattered his left leg and underwent extensive and complicated surgical repair which took 14 months to heal, states he ended up have several blood clots in his lungs, he was started on blood thinner and eventually taken off it. Patient was found to be hypoxic in ER and required 2L of oxygen to maintain sats, CTA chest was negative for PE but did show some mild thickening of bronchial uriostegui, consistent with mild bronchitis,, mild linear density in posterior and lateral lobe, along with mild pleural thickening consistent with previous inflammatory disease. Patient was admitted for further management of acute hypoxic respiratory failure. Diagnosis: Stroke: No - Discharge Data Discharge Date: 06/04/20 Discharge Disposition: Home, Self-Care 01 Condition: Stable - Referral to Home Health Primary Care Physician: Isiah George MD - Discharge Diagnosis/Problem(s) (1) Acute hypoxemic respiratory failure SNOMED Code(s): 910839905 ICD Code: J96.01 - ACUTE RESPIRATORY FAILURE WITH HYPOXIA Status: Acute Current Visit: Yes (2) Bronchitis SNOMED Code(s): 71401576 ICD Code: J40 - BRONCHITIS, NOT SPECIFIED ACUTE OR CHRONIC Status: Acute Current Visit: Yes (3) Diabetes SNOMED Code(s): 10775561 ICD Code: E11.9 - TYPE 2 DIABETES MELLITUS WITHOUT COMPLICATIONS Status: Acute Current Visit: Yes - Patient Summary/Data Hospital Course: Admitting diagnoses: Acute hypoxic respiratory failure Bronchitis Possible CAP Charge diagnoses: Acute hypoxic respiratory failure resolved Bronchitis Possible CAP [place] was admitted secondary to acute hypoxic respiratory failure he was treated with prednisone, azithromycin and Rocephin along with duo nebs. He was able to be weaned off oxygen overnight. CTA was obtained which showed possible bronchitis versus infiltrate. PE was ruled out. He has no tobacco history but does work around a lot of welding smoke and chemicals. There is potential he has component of COPD. We did start inhalers including albuterol rescue inhaler along with Advair. Today he is feeling much improved and is eager to go home. We will continue with inhalers along with Levaquin for 3 more days and prednisone 40 mg daily taper for 4 more days. He was encouraged to have a PFT as an outpatient. This was ordered and will be set up for him. He is to follow-up with PCP in 1 to 2 weeks for further evaluation. He is to return to the ER or clinic sooner if concerns should arise. - Patient Instructions Diet: Diabetic Diet Activity: No Strenuous Activities, Rest and Relax Today Showering/Bathing: May Shower Notify Provider of: Fever, Increased Pain, Swelling and Redness, Drainage, Nausea and/or Vomiting Other/Special Instructions: No work today or tomorrow. Rest at home. - Discharge Plan *PRESCRIPTION DRUG MONITORING PROGRAM REVIEWED*: No *COPY OF PRESCRIPTION DRUG MONITORING REPORT IN PATIENT DAPHNE: No Prescriptions/Med Rec: Fluticasone/Salmeterol [Advair 250-50] 1 puff INH BID #1 diskus levoFLOXacin [Levaquin] 750 mg PO DAILY #3 tab predniSONE [Prednisone] 40 mg PO DAILY #8 tablet Albuterol [Ventolin HFA] 1 - 2 puff INH Q4H PRN #1 inhaler PRN Reason: sob Home Medications: Home Meds Aspirin [[place] Aspirin EC] 81 mg PO DAILY 01/09/16 [History] Canagliflozin [Invokana] 300 mg PO DAILY 01/09/16 [History] Enalapril Maleate 5 mg PO BID 01/09/16 [History] Glimepiride [Amaryl] 2 mg PO DAILY 01/09/16 [History] atorvaSTATin Calcium [Atorvastatin Calcium] 10 mg PO DAILY 01/09/16 [History] metFORMIN HCl [Metformin HCl] 1,000 mg PO BID 01/09/16 [History] Albuterol [Ventolin HFA] 1 - 2 puff INH Q4H PRN #1 inhaler 06/04/20 [Rx] Fluticasone/Salmeterol [Advair 250-50] 1 puff INH BID #1 diskus 06/04/20 [Rx] Sildenafil Citrate 100 mg PO . NEEDED PRN 06/04/20 [History] levoFLOXacin [Levaquin] 750 mg PO DAILY #3 tab 06/04/20 [Rx] predniSONE [Prednisone] 40 mg PO DAILY #8 tablet 06/04/20 [Rx] Oxygen Therapy Mode: Room Air Patient Handouts: Hypoxia, Fluticasone; Salmeterol inhalation powder, Albuterol inhalation aerosol, Levofloxacin tablets, Prednisone tablets, Acute Bronchitis, Adult Referrals: Isiah George MD [Primary Care Provider] - 06/11/20 10:30 am - Discharge Summary/Plan Comment DC Time >30 min.: No - Patient Data Vitals - Most Recent: Last Vital Signs Temp 96.8 F L 06/04/20 11:32 Pulse 80 06/04/20 11:32 Resp 16 06/04/20 11:32 BP 113/66 06/04/20 11:32 Pulse Ox 96 06/04/20 11:32 Weight - Most Recent: 116.261 kg I&O - Last 24 hours: Intake & Output 06/04/20 06/04/20 06/04/20 06:59 14:59 22:59 Intake Total 1000 Output Total 1000 Balance 0 Lab Results - Last 24 hrs: Laboratory Results - last 24 hr 06/03/20 06/04/20 06/04/20 Range/Units 16:34 05:42 06:00 WBC 7.83 (4.0-11.0) K/uL RBC 5.31 (4.50-5.90) M/uL Hgb 15.4 (13.0-17.0) g/dL Hct 48.2 (38.0-50.0) % MCV 90.8 (80.0-98.0) fL MCH 29.0 (27.0-32.0) pg MCHC 32.0 (31.0-37.0) g/dL RDW Std Deviation 47.8 (28.0-62.0) fl RDW Coeff of Shireen 14 (11.0-15.0) % Plt Count 149 L (150-400) K/uL MPV 9.80 (7.40-12.00) fL Neut % (Auto) 70.1 (48.0-80.0) % Lymph % (Auto) 16.0 (16.0-40.0) % [place] % (Auto) 13.3 (0.0-15.0) % Eos % (Auto) 0.5 (0.0-7.0) % Baso % (Auto) 0.1 (0.0-1.5) % Neut # (Auto) 5.5 (1.4-5.7) K/uL Lymph # (Auto) 1.3 (0.6-2.4) K/uL [place] # (Auto) 1.0 H (0.0-0.8) K/uL Eos # (Auto) 0.0 (0.0-0.7) K/uL Baso # (Auto) 0.0 (0.0-0.1) K/uL Nucleated RBC % 0.0 /100WBC Nucleated RBCs # 0 K/uL Sodium (136-148) mmol/L Potassium (3.5-5.1) mmol/L Chloride (98-107) mmol/L Carbon Dioxide (21.0-32.0) mmol/L BUN (7.0-18.0) mg/dL Creatinine (0.8-1.3) mg/dL Est Cr Clr Drug Dosing mL/min Estimated GFR (MDRD) ml/min Glucose (74-106) mg/dL POC Glucose 228 H 151 H (60-110) mg/dL Calcium (8.5-10.1) mg/dL Phosphorus (2.6-4.7) mg/dL Magnesium (1.8-2.4) mg/dL 06/04/20 06/04/20 06/04/20 Range/Units 06:00 07:51 11:19 WBC (4.0-11.0) K/uL RBC (4.50-5.90) M/uL Hgb (13.0-17.0) g/dL Hct (38.0-50.0) % MCV (80.0-98.0) fL MCH (27.0-32.0) pg MCHC (31.0-37.0) g/dL RDW Std Deviation (28.0-62.0) fl RDW Coeff of Shireen (11.0-15.0) % Plt Count (150-400) K/uL MPV (7.40-12.00) fL Neut % (Auto) (48.0-80.0) % Lymph % (Auto) (16.0-40.0) % [place] % (Auto) (0.0-15.0) % Eos % (Auto) (0.0-7.0) % Baso % (Auto) (0.0-1.5) % Neut # (Auto) (1.4-5.7) K/uL Lymph # (Auto) (0.6-2.4) K/uL [place] # (Auto) (0.0-0.8) K/uL Eos # (Auto) (0.0-0.7) K/uL Baso # (Auto) (0.0-0.1) K/uL Nucleated RBC % /100WBC Nucleated RBCs # K/uL Sodium 140 (136-148) mmol/L Potassium 3.6 (3.5-5.1) mmol/L Chloride 103 (98-107) mmol/L Carbon Dioxide 26.1 (21.0-32.0) mmol/L BUN 30 H (7.0-18.0) mg/dL Creatinine 1.0 (0.8-1.3) mg/dL Est Cr Clr Drug Dosing 85.45 mL/min Estimated GFR (MDRD) > 60.0 ml/min Glucose 166 H (74-106) mg/dL POC Glucose 152 H 213 H (60-110) mg/dL Calcium 8.6 (8.5-10.1) mg/dL Phosphorus 3.0 (2.6-4.7) mg/dL Magnesium 2.3 (1.8-2.4) mg/dL 06/04/20 Range/Units 12:40 WBC (4.0-11.0) K/uL RBC (4.50-5.90) M/uL Hgb (13.0-17.0) g/dL Hct (38.0-50.0) % MCV (80.0-98.0) fL MCH (27.0-32.0) pg MCHC (31.0-37.0) g/dL RDW Std Deviation (28.0-62.0) fl RDW Coeff of Shireen (11.0-15.0) % Plt Count (150-400) K/uL MPV (7.40-12.00) fL Neut % (Auto) (48.0-80.0) % Lymph % (Auto) (16.0-40.0) % [place] % (Auto) (0.0-15.0) % Eos % (Auto) (0.0-7.0) % Baso % (Auto) (0.0-1.5) % Neut # (Auto) (1.4-5.7) K/uL Lymph # (Auto) (0.6-2.4) K/uL [place] # (Auto) (0.0-0.8) K/uL Eos # (Auto) (0.0-0.7) K/uL Baso # (Auto) (0.0-0.1) K/uL Nucleated RBC % /100WBC Nucleated RBCs # K/uL Sodium (136-148) mmol/L Potassium (3.5-5.1) mmol/L Chloride (98-107) mmol/L Carbon Dioxide (21.0-32.0) mmol/L BUN (7.0-18.0) mg/dL Creatinine (0.8-1.3) mg/dL Est Cr Clr Drug Dosing mL/min Estimated GFR (MDRD) ml/min Glucose (74-106) mg/dL POC Glucose 187 H (60-110) mg/dL Calcium (8.5-10.1) mg/dL Phosphorus (2.6-4.7) mg/dL Magnesium (1.8-2.4) mg/dL Med Orders - Current: Current Medications Acetaminophen (Tylenol) 650 mg PO Q4H PRN PRN Reason: Pain (Mild 1-3)/fever Last Admin: 06/04/20 09:38 Dose: 650 mg Documented by: Albuterol (Ventolin Hfa) 0 gm INH Q4H PRN PRN Reason: sob Albuterol/Ipratropium (Duoneb 3.0-0.5 Mg/3 Ml) 3 ml NEB Q4HRRT [facility] Last Admin: 06/04/20 10:14 Dose: 3 ml Documented by: Aspirin (Halfprin) 81 mg PO DAILY [facility] Last Admin: 06/04/20 08:11 Dose: 81 mg Documented by: Atorvastatin Calcium (Lipitor) 10 mg PO BEDTIME [facility] Dextrose/Water (Dextrose 50% In Water) 50 ml IV ASDIRECTED PRN PRN Reason: Hypoglycemia Enalapril Maleate (Vasotec) 5 mg PO BID [facility] Last Admin: 06/04/20 08:11 Dose: 5 mg Documented by: Enoxaparin Sodium (Lovenox) 40 mg SUBCUT Q24H [facility] Last Admin: 06/04/20 11:25 Dose: 40 mg Documented by: Glucagon (Glucagen) 1 mg IM ASDIRECTED PRN PRN Reason: Hypoglycemia Azithromycin 500 mg/ Sodium (Chloride) 250 mls @ 250 mls/hr IV DAILY [facility] Last Admin: 06/04/20 10:53 Dose: 250 mls/hr Documented by: Ceftriaxone Sodium/Dextrose 1 (gm/ Premix) 50 mls @ 100 mls/hr IV Q24H [facility] Last Admin: 06/04/20 09:52 Dose: 100 mls/hr Documented by: Insulin Aspart (Novolog) 0 unit SUBCUT TIDAC [facility]; Protocol Last Admin: 06/04/20 12:40 Dose: 1 units Documented by: Ondansetron HCl (Zofran) 4 mg IVPUSH Q4H PRN PRN Reason: Nausea/Vomiting Fluticasone/Salmeterol (Advair Diskus 250-50) 1 puff INH BID [facility] Last Admin: 06/04/20 10:13 Dose: 1 inhalation Documented by: Sodium Chloride (Saline Flush) 2.5 ml FLUSH ASDIRECTED PRN PRN Reason: Keep Vein Open Discontinued Medications Acetaminophen (Tylenol Extra Strength) 1,000 mg PO ONETIME ONE Stop: 06/02/20 23:26 Last Admin: 06/02/20 23:31 Dose: 1,000 mg Documented by: Albuterol/Ipratropium (Duoneb 3.0-0.5 Mg/3 Ml) 3 ml NEB ONETIME ONE Stop: 06/03/20 04:14 Last Admin: 06/03/20 04:50 Dose: 3 ml Documented by: Albuterol/Ipratropium (Duoneb 3.0-0.5 Mg/3 Ml) 3 ml NEB ONETIME ONE Stop: 06/03/20 05:28 Last Admin: 06/03/20 05:31 Dose: 3 ml Documented by: Aspirin (Aspirin) 324 mg PO ONETIME ONE Stop: 06/02/20 23:26 Last Admin: 06/02/20 23:31 Dose: 324 mg Documented by: Atorvastatin Calcium (Lipitor) 10 mg PO DAILY [facility] Last Admin: 06/03/20 10:11 Dose: 10 mg Documented by: Enalapril Maleate (Vasotec) 15 mg PO BID [facility] Last Admin: 06/03/20 21:03 Dose: 15 mg Documented by: Enoxaparin Sodium (Lovenox) 40 mg SUBCUT Q24H [facility] Last Admin: 06/03/20 10:47 Dose: Not Given Documented by: Furosemide (Lasix) 20 mg IVPUSH ONETIME ONE Stop: 06/03/20 11:03 Last Admin: 06/03/20 11:37 Dose: 20 mg Documented by: Iopamidol (Isovue Multipack-370 (76%)) 100 ml IVPUSH ONETIME STA Stop: 06/03/20 03:51 Last Admin: 06/03/20 03:51 Dose: 100 ml Documented by: Prednisone (Prednisone) 60 mg PO ONETIME ONE Stop: 06/03/20 05:16 Last Admin: 06/03/20 05:30 Dose: 60 mg Documented by: - Exam Quality Assessment: Reports: DVT Prophylaxis. Denies: Supplemental Oxygen General: Reports: Alert, Oriented, Cooperative, No Acute Distress Lungs: Reports: Clear to Auscultation, Normal Respiratory Effort. Denies: Wheezing Cardiovascular: Reports: Regular Rate, Regular Rhythm GI/Abdominal Exam: Normal Bowel Sounds, Soft, Non-Tender Extremities: Normal Inspection, Normal Range of Motion, Non-Tender, No Pedal Edema Wound/Incisions: Reports: Healing Well Neurological: Reports: No New Focal Deficit Psy/Mental Status: Reports: Alert, Normal Affect, Normal Mood
[2020-06-04] MEDS ORDERED: atorvaSTATin 10 MG Tab PO SCH (21:00)
== END 2020-06-04 14:30 | disposition home or self-care (01) ==
LOC: MW.ED 22:38 → MW.MS 06-03 05:26
PROVIDERS: ADMIT Student in an Organized Health Care Education/Training Program; ATTEND Student in an Organized Health Care Education/Training Program
DX: J96.01 Acute respiratory failure with hypoxia (principal); J40 Bronchitis, not specified as acute or chronic; I10 Essential (primary) hypertension; R51.9 Headache, unspecified; R91.8 Other nonspecific abnormal finding of lung field; E78.00 Pure hypercholesterolemia, unspecified; E11.9 Type 2 diabetes mellitus without complications; E66.9 Obesity, unspecified; Z68.33 Body mass index [BMI] 33.0-33.9, adult; Z20.822 Contact with and (suspected) exposure to COVID-19; Z88.2 Allergy status to sulfonamides; Z88.8 Allergy status to other drugs, medicaments and biological substances; Z79.82 Long term (current) use of aspirin; Z79.899 Other long term (current) drug therapy; Z86.010 Personal history of colon polyps; Z86.718 Personal history of other venous thrombosis and embolism; Z86.16 Personal history of COVID-19; Z98.890 Other specified postprocedural states
CPT/HCPCS: 36415; 71045; 71275; 80048; 80053; 80061; 81003; 82962; 83036; 83735; 83880; 84100; 84443; 84484; 85025; 85379; 85610; 87635; 93005; 94640; 96365; 96367; 96372; 96375; 96376; 99285; A9270; G0378; J0456; J0696; J1650; J1815; J1940; J7050; Q9967; 93010; 99284; J7620-GY; U0002

== ENCOUNTER 2023-05-27 08:16 | Day surgery (SDC) | payer BC ==
[2023-05-27] MEDS ORDERED: propofoL 50 ML ONE (08:59)
[2023-05-27] MEDS: Lactated Ringers 1,000 ML IV SCH (09:01)
[2023-05-27 11:29] VITALS: BP 126/76; PULSE 70
== END 2023-05-27 11:45 | disposition home or self-care (01) ==
LOC: MW.SDS 08:16
PROVIDERS: ATTEND Surgery
DX: Z12.11 Encounter for screening for malignant neoplasm of colon (principal); K57.30 Diverticulosis of large intestine without perforation or abscess without bleeding; E78.5 Hyperlipidemia, unspecified; I10 Essential (primary) hypertension; E11.9 Type 2 diabetes mellitus without complications; M19.90 Unspecified osteoarthritis, unspecified site; E66.9 Obesity, unspecified; Z68.30 Body mass index [BMI] 30.0-30.9, adult; Z86.010 Personal history of colon polyps; Z88.2 Allergy status to sulfonamides; Z88.1 Allergy status to other antibiotic agents; Z79.82 Long term (current) use of aspirin; Z79.899 Other long term (current) drug therapy; Z79.84 Long term (current) use of oral hypoglycemic drugs; Z90.89 Acquired absence of other organs; Z86.718 Personal history of other venous thrombosis and embolism; Z86.711 Personal history of pulmonary embolism
CPT/HCPCS: 45378; J2704; J7120

== ENCOUNTER 2023-10-02 22:40 | Emergency (ER) | payer BC ==
[2023-10-03] MEDS: Activated Charcoal/Sorbitol Susp 50 GM/240 ML Tube ONE (00:28)
[2023-10-03 00:39] LABS: APPEARANCE,URINE SLT CLOUDY; BILIRUBIN,URINE NEGATIVE (NEGATIVE); COLOR,URINE YELLOW; GLUCOSE,URINE >=1000 mg/dL (NEGATIVE); KETONES,URINE NEGATIVE (NEGATIVE); LEUKOCYTE ESTERASE,URINE NEGATIVE (NEGATIVE); NITRITE,URINE NEGATIVE (NEGATIVE); OCCULT BLOOD,URINE MODERATE (NEGATIVE); PROTEIN,URINE NEGATIVE (NEGATIVE); UROBILINOGEN,URINE 0.2 EU/dL (<2.0)
[2023-10-03 00:51] LABS: BACTERIA,URINE FEW (NEGATIVE); EPITHELIAL CELLS,URINE RARE (NONE-FEW); RBC,URINE TOO NUMEROUS TO CT (0-2/HPF); WBC,URINE 0-2 (0-5/HPF)
[2023-10-03] MEDS: Sodium Chloride 0.9% 10 ML Syringe FLUSH PRN (01:59)
[2023-10-03] MEDS: Sodium Chloride 0.9% 2.5 ML Syringe FLUSH PRN (01:59)
[2023-10-03 02:06] LABS: BASOPHILS ABSOLUTE AUTO 0.01 K/uL (0.00-0.20); BASOPHILS PERCENT AUTO 0.1 % (0.0-1.0); HEMATOCRIT 45.2 % (42.0-52.0); HEMOGLOBIN 14.7 g/dL (14.0-18.0); IMMATURE GRAN ABSOLUTE AUTO 0.02 K/uL (0.00-0.05); IMMATURE GRAN PERCENT AUTO 0.2 % (0.0-0.4); LYMPHOCYTES ABSOLUTE AUTO 0.77 K/uL (1.00-4.80); LYMPHOCYTES PERCENT AUTO 8.4 % (24.0-44.0); MEAN CORPUSCULAR HGB CONC 32.5 g/dL (32.0-36.0); MEAN CORPUSCULAR VOLUME 92.2 fL (83.0-99.0); MEAN PLATELET VOLUME 8.7 fL (9.4-12.4); MONOCYTES ABSOLUTE AUTO 0.79 K/uL (0.00-0.80); MONOCYTES PERCENT AUTO 8.6 % (0.0-8.0); NEUTROPHILS ABSOLUTE AUTO 7.61 K/uL (1.80-7.70); NEUTROPHILS PERCENT AUTO 82.7 % (41.0-71.0); PLATELET COUNT,PLT 161 K/uL (150-400)
[2023-10-03 02:19] LABS: INR 1.05 (0.86-1.11)
[2023-10-03 02:27] LABS: A/G RATIO 1.2 (0.9-1.6); ALBUMIN 3.6 g/dL (3.4-5.0); BILIRUBIN TOTAL 0.6 mg/dL (0.2-1.0); CALCIUM 8.6 mg/dL (8.5-10.1); CREATININE 1.3 mg/dL (0.8-1.3); EST CRCL DRUG DOSING (CG) 62.32 mL/min; PROTEIN TOTAL,TP 6.6 g/dL (6.4-8.2)
[2023-10-03] MEDS ORDERED: Iopamidol 612 MG/ML 50 ML SDV IUTERINE ONE (04:31)
[2023-10-03] MEDS: Iopamidol 612 MG/ML 100 ML Bottle IUTERINE STA (04:35)
[2023-10-03] MEDS: Acetaminophen/HYDROcodone 325-5 MG Tab PO ONE (07:50)
[2023-10-03 10:17] VITALS: BP 138/79; PULSE 76
[2023-10-03] MEDS: Iopamidol 755 MG/ML 500 ML Multipack Bottle IVPUSH STA (11:14)
== END 2023-10-03 10:10 | disposition home or self-care (01) ==
LOC: MW.ED 22:40
DX: R31.9 Hematuria, unspecified (principal); I10 Essential (primary) hypertension; E66.9 Obesity, unspecified; E11.9 Type 2 diabetes mellitus without complications; Z88.2 Allergy status to sulfonamides; Z88.8 Allergy status to other drugs, medicaments and biological substances; Z79.84 Long term (current) use of oral hypoglycemic drugs; Z79.82 Long term (current) use of aspirin; Z79.899 Other long term (current) drug therapy; Z68.31 Body mass index [BMI] 31.0-31.9, adult
CPT/HCPCS: 36415; 51702; 71275; 74176; 80053; 81001; 82947; 83690; 84484; 85025; 85379; 85610; 87086; 93005; 99284; A9270; J3490; Q9967; 93010; 99283

== ENCOUNTER → 2023-10-02 | Day surgery (SDC) | payer BC ==
[~2023-10-02] MED LIST: Acetaminophen 1,000 MG in Premix Bag 1 BAG IV SCH; Albuterol 0.083% 2.5 MG/3 ML Neb Soln NEB PRN; Bupivacaine 0.25% 30 ML SDV ONE; Bupivacaine 0.5% 30 ML SDV ONE; Dexamethasone 4 MG/ML 5 ML MDV ONE; HYDROmorphone 1 MG/ML Syringe IVPUSH PRN; Ketamine HCL/NACL, ISO-OSM 50 MG/5 ML Syringe ONE; Lidocaine 2% 5 ML SDV ONE; Metoclopramide 10 MG/2 ML SDV IVPUSH PRN; Morphine 10 MG/ML SDV ONE; Morphine 2 MG/ML SYRINGE IVPUSH PRN; Naloxone 0.4 MG/ML SDV IVPUSH PRN; Ondansetron 4 MG/2 ML SDV IVPUSH PRN; Ondansetron 4 MG/2 ML SDV ONE; Propofol 200 MG/20 ML SDV ONE; Rocuronium Bromide 50 MG/5 ML Syringe ONE; Ropivacaine 0.5% 5 MG/ML 30 ML SDV ONE; Scopalamine 1mg/3day Transdermal Patch TOP ONE; Sugammadex Sodium 200 MG/2 ML VIAL IV ONE; ceFAZolin 2 GM in Sodium Chloride 0.9% 50 ML IV ONE; droPERidol 5 MG/2 ML SDV IVPUSH PRN; fentaNYL 100 MCG/2 ML SDV ONE; fentaNYL 50 MCG/ML SDV IVPUSH PRN
[2023-10-02] MEDS: Pregabalin 75 MG Cap PO SCH (08:20)
[2023-10-02] MEDS: Lactated Ringers 1,000 ML IV SCH (08:32)
[2023-10-02 12:56] LABS: APPEARANCE,URINE SLT CLOUDY; BILIRUBIN,URINE NEGATIVE (NEGATIVE); COLOR,URINE OTHER; GLUCOSE,URINE >=1000 mg/dL (NEGATIVE); KETONES,URINE TRACE mg/dL (NEGATIVE); LEUKOCYTE ESTERASE,URINE NEGATIVE (NEGATIVE); NITRITE,URINE POSITIVE (NEGATIVE); OCCULT BLOOD,URINE LARGE (NEGATIVE); PH,URINE 5.5 (5.0-8.0); PROTEIN,URINE 100 mg/dL (NEGATIVE); UROBILINOGEN,URINE 0.2 EU/dL (<2.0)
[2023-10-02 13:35] VITALS: BP 124/66; PULSE 65
== END ==
LOC: MW.SDS 07:46
PROVIDERS: ATTEND Surgery
DX: K40.91 Unilateral inguinal hernia, without obstruction or gangrene, recurrent (principal); K40.90 Unilateral inguinal hernia, without obstruction or gangrene, not specified as recurrent; I10 Essential (primary) hypertension; E11.9 Type 2 diabetes mellitus without complications; E78.00 Pure hypercholesterolemia, unspecified; E66.9 Obesity, unspecified; Z79.82 Long term (current) use of aspirin; Z79.84 Long term (current) use of oral hypoglycemic drugs; Z79.899 Other long term (current) drug therapy; Z88.2 Allergy status to sulfonamides
CPT/HCPCS: 49650; 49651; 64488; 81003; 82947; A9270; J0665; J1100; J2270; J2405; J2704; J2795; J3010; J3490; J7120